=== PATIENT | female | born 1995 | race African-American/Black ===

== ENCOUNTER 2017-09-11 23:44 | Emergency (ER) | payer MEDICAID ==
--- NOTE | 2017-09-12 00:08 | ED Physician Chart ---
ED Chief Complaint/HPI - Patient Information Date Seen:: 09/12/17 Time Seen:: 00:00 Chief Complaint:: okay to book History of Present Illness:: Patient was brought here to receive an okay to book. Only chronic medical problem is seizures. Had her first seizure 5 years ago and she states her last seizure was 4-5 years ago. Patient's takes Dilantin 400 mg a day but missed yesterday's dose. She states that during a seizure she blacks out and has bitten her tongue during a seizure in the past but apparently not had urinary incontinence. Allergies:: Allergies Allergy/AdvReac Type Severity Reaction Status Date / Time No Known Allergies Allergy Verified 09/11/17 23:51 Vitals:: Vital Signs - 8 hr 09/11/17 23:45 Temp 97.2 F HR 84 RR 17 BP 116/65 O2 Sat % 98 Historian:: Patient Review:: Nurse's Note Reviewed ED Review of Systems - Review of Systems General/Constitutional: No fever, No chills Skin: No skin lesions Head: No headache Eyes: No loss of vision ENT: No earache Neck: No neck pain, No swelling Cardio Vascular: No chest pain, No palpitations Pulmonary: No SOB GI: No nausea, No vomiting, No diarrhea G/U: No dysuria Musculoskeletal: No bone or joint pain Endocrine: No polyuria, No polydipsia Psychiatric: No prior psych history Hematopoietic: No bruising Allergic/Immuno: No urticaria Neurological: No syncope, No focal symptoms ED Past Medical History - Past Medical History Past Medical History: Seizures Family History: None Social History: Non Smoker, No Alcohol Surgical History: None Psychiatricy History: None Medication: Reviewed Family Medical History - Family Member Aunt History Unknown: Yes Hx Family Diabetes: Yes ED Physical Exam - Physical Examination General/Constitutional: Awake, Well-developed, well-nourished, Alert, No distress Head: Atraumatic Eyes: Lids, conjuctiva normal, PERRL Other Eyes comments:: Patient declined fundal exam and she says the light hurts her eyes Skin: Nl inspection, No rash, No skin lesions, No ecchymosis ENMT: External ears, nose nl, TM canals nl, Nasal exam nl, Lips, teeth, gums nl Neck: No nuchal rigidity Respiratory: Nl effort/Exclusion, Clear to Auscultation, No Wheeze/Rhonchi/Rales Cardio Vascular: RRR, No murmur, gallop, rubs, NL S1 S2 GI: No organomegaly, No hernia Extremities: Normal digits & nails Neuro/Psych: Alert/oriented, No focal deficits Misc: Normal back ED Labs/Radiology/EKG Results - Lab Results Comments:: Laboratory Results - last 24 hr 09/12/17 00:20 Phenytoin 4.0 L ED Septic Shock - . Is Septic Shock (SBP<90, OR Lactate>4 mmol\L) present?: No - <6hrs of presentation: Vital Signs: Vital Signs - 8 hr 09/11/17 23:45 Temp 97.2 F HR 84 RR 17 BP 116/65 O2 Sat % 98 ED Reassessment (Disposition) - Reassessment Reassessment Condition:: Unchanged - Diagnosis Diagnosis:: Okay to book; history of seizures; subtherapeutic serum Dilantin level - Aftercare/Follow up Instructions Aftercare/Follow-Up Instructions:: Refer to Discharge Instructions - Patient Disposition Discharge/Transfer:: Fdc/Group Home Condition at Disposition:: Stable, Unchanged
== END 2017-09-12 01:35 | disposition home or self-care (01) ==
LOC: ER 23:44
DX: Z51.81 Encounter for therapeutic drug level monitoring (principal)
CPT/HCPCS: 36415-UA; 80185-TC; Z7502